=== PATIENT | male | born 1950 | race Two or more races ===

== ENCOUNTER 2020-06-10 03:24 | Emergency (ER) | payer OTHER ==
[~2020-06-10] VITALS: Ht 182.9 cm; Wt 117.9 kg
[~2020-06-10 03:24] MED LIST: CARDURA1 MG PO; LIPITOR20 MG PO; MAXZIDE-25 MG T1 TAB PO; ZESTRIL20 MG PO
[2020-06-10] MEDS ORDERED: TOPROL XL25 M1 (03:41)
[2020-06-10] MEDS ORDERED: AMLOD-VALSA-HC1 EAC1 (03:41)
[2020-06-10] MEDS ORDERED: COZAAR25 MG (03:41)
[2020-06-10] MEDS ORDERED: LUPRON DEPOT22.5 MG (03:42)
[2020-06-10] MEDS ORDERED: ATORVASTATIN CA10 MG (03:42)
[2020-06-10] MEDS ORDERED: DYRENIUM50 MG (03:42)
[2020-06-10] MEDS ORDERED: MAGNESIUM100 MG (03:42)
[2020-06-10] MEDS ORDERED: CALCIUM600 MG (03:43)
[2020-06-10] MEDS ORDERED: LASIX20 MG PO (09:18)
[2020-06-10] MEDS ORDERED: VOLTAREN-XR100 MG PO (09:18)
[2020-06-10] MEDS ORDERED: SKELAXIN800 MG PO (09:18)
== END 2020-06-10 09:50 | disposition home or self-care (01) ==
LOC: ER 03:24
DX: M62.830 Muscle spasm of back (principal); R60.0 Localized edema; Z03.818 Encounter for observation for suspected exposure to other biological agents ruled out

== ENCOUNTER 2020-12-16 10:15 | Emergency (ER) | payer OTHER ==
[~2020-12-16] VITALS: Ht 182.9 cm; Wt 117.9 kg
[~2020-12-16 10:15] MED LIST changes: +AMLOD-VALSA-HC1 EAC1; +ATORVASTATIN CA10 MG; +CALCIUM600 MG; +COZAAR25 MG; +DYRENIUM50 MG; +LASIX20 MG PO; +LUPRON DEPOT22.5 MG; +MAGNESIUM100 MG; +SKELAXIN800 MG PO; +TOPROL XL25 M1; +VOLTAREN-XR100 MG PO
[2020-12-16] MEDS ORDERED: EPLERENONE50 MG (10:40)
[2020-12-16] MEDS ORDERED: HYDROCHLOROTH12.5 MG (10:40)
[2020-12-16] MEDS ORDERED: BACLOFEN10 MG (10:41)
[2020-12-16] MEDS ORDERED: LUPRON DEPOT22.5 MG (10:43)
== END 2020-12-16 17:16 | disposition home or self-care (01) ==
LOC: ER 10:15
DX: N20.1 Calculus of ureter (principal); R10.32 Left lower quadrant pain; Z03.818 Encounter for observation for suspected exposure to other biological agents ruled out

== ENCOUNTER 2020-12-21 00:16 | Emergency (ER) | payer OTHER ==
[~2020-12-21] VITALS: Ht 182.9 cm; Wt 117.9 kg
[~2020-12-21 00:16] MED LIST changes: +BACLOFEN10 MG; +EPLERENONE50 MG; +HYDROCHLOROTH12.5 MG
[2020-12-21] MEDS ORDERED: LEVSIN/SL0.125 MG SL (05:29)
[2020-12-21] MEDS ORDERED: CIPRO500 MG PO (05:29)
== END 2020-12-21 05:37 | disposition home or self-care (01) ==
LOC: ER 00:16
DX: R31.29 Other microscopic hematuria (principal); R10.32 Left lower quadrant pain

== ENCOUNTER 2024-06-10 13:03 | Emergency (ER) | payer OTHER ==
[~2024-06-10] VITALS: Ht 182.9 cm; Wt 73.5 kg
[~2024-06-10 13:03] MED LIST changes: +CIPRO500 MG PO; +LEVSIN/SL0.125 MG SL
[2024-06-10] MEDS ORDERED: ONDANSETRON HCL 2 MG/ML VIAL IV STA ×2 (14:02→15:17)
[2024-06-10] MEDS ORDERED: 0.9 % SODIUM CHLORIDE 1,000 ML IV SCH (14:15)
[2024-06-10] MEDS ORDERED: ONDANSETRON HCL 2 MG/ML VIAL ONE (14:16)
[2024-06-10 14:40] LABS: HEMATOCRIT 40.3 % (39.0-48.0); HEMOGLOBIN 13.7 g/dL (13-16.00); MEAN CELL VOLUME 86.9 fL (80.0-100.00); MEAN CORPUSCULAR HEMOGLOBIN 29.5 pg (27.00-32.0); MEAN CORPUSCULAR HGB CONC 33.9 g/dl (32.0-36.0); RED BLOOD COUNT 4.64 M/uL (4.00-6.00); RED CELL DISTRIBUTION WIDTH 14.4 % (11.5-14.5)
[2024-06-10 14:48] LABS: PLATELET COUNT 127 K/uL (150-450)
[2024-06-10 14:58] LABS: CALCIUM 9.8 mg/dL (8.5-10.1); CREATININE SERUM 1.06 mg/dL (0.70-1.30); GFR 68.48; POTASSIUM 3.78 mEq/L (3.5-5.1)
[2024-06-10] MEDS ORDERED: MEPERIDINE HCL/PF 50 MG/ML VIAL IM ONE (15:30)
[2024-06-10] MEDS ORDERED: PROMETHAZINE HCL 25 MG/ML AMPUL ONE (15:53)
[2024-06-10] MEDS ORDERED: PROMETHAZINE HCL 25 MG/ML AMPUL IM ONE (16:00)
[2024-06-10] MEDS ORDERED: PEPCID AC20 MG PO (18:09)
== END 2024-06-10 18:19 | disposition home or self-care (01) ==
LOC: ER 13:05
PROVIDERS: Emergency Medicine
DX: K29.70 Gastritis, unspecified, without bleeding (principal); R10.9 Unspecified abdominal pain; I10 Essential (primary) hypertension
CPT/HCPCS: 36415; 76700; 96365; 96366; 99284; J7030